=== PATIENT | female | born 1945 ===

== ENCOUNTER 2020-07-06 17:40 | Emergency (ER) | payer MEDICARE ==
[~2020-07-06] VITALS: Ht 162.6 cm; Wt 65.4 kg
--- NOTE | 2020-07-06 18:09 | NUR ---
REFUSED DRESSING TO LAC IN TRIAGE. BLEEDING CONTROLLED.
[2020-07-06] MEDS ORDERED: LIDOCAINE 1%, 10ML INFIL ONE (18:30)
[2020-07-06] MEDS ORDERED: LIDOCAINE-MPF 1%, 5ML INFIL ONE (18:30)
[2020-07-06] MEDS ORDERED: LIDOCAINE-MPF 1%, 5ML ONE (20:42)
[2020-07-06] MEDS ORDERED: DIPH,PERTUSS(ACELL),TET VAC/PF 0.5 ML IM-VACC ONE ×2 (20:59→21:30)
[2020-07-06 21:10] VITALS: BP 135/76
--- NOTE | 2020-07-06 21:21 | NUR ---
Patient given discharge instructions and they have confirmed that they understand the instructions. Patient ambulatory with steady gait.
== END 2020-07-06 21:22 | disposition home or self-care (01) ==
LOC: ED 20:49
DX: S01.01XA Laceration without foreign body of scalp, initial encounter (principal); W01.0XXA Fall on same level from slipping, tripping and stumbling without subsequent striking against object, initial encounter; Y93.89 Activity, other specified; Y92.098 Other place in other non-institutional residence as the place of occurrence of the external cause; Y99.8 Other external cause status
CPT/HCPCS: 12031; 70450; 72125; 90471; 90715; 99285